=== PATIENT | male | born 1985 | race Caucasian/White ===

== ENCOUNTER → 2019-04-11 | Outpatient (CLI) | payer BC ==
--- NOTE | 2019-04-11 13:35 | Diagnostic Imaging Report ---
INDICATION: Pneumonia and dyspnea. TIME OF EXAMINATION: 12:58 PM. COMPARISON: No prior studies are available for comparison. FINDINGS: The heart appears to be mildly enlarged. The lungs are clear. The pulmonary vascularity is normal. No infiltrate, effusion, or pneumothorax is seen. IMPRESSION: No acute cardiopulmonary process is detected. Dictated by: Dictated on workstation # [id number]
== END ==
LOC: RAD 12:40
PROVIDERS: ATTEND Nurse Practitioner Family
DX: J18.9 Pneumonia, unspecified organism (principal); R91.8 Other nonspecific abnormal finding of lung field
CPT/HCPCS: 71046

== ENCOUNTER 2019-05-27 20:31 | Outpatient (CLI) | payer BC | END 2019-05-28 06:15 | disposition home or self-care (01) | LOC: SLEEP 20:31 | PROVIDERS: ATTEND Nurse Practitioner Family | DX: G47.10 Hypersomnia, unspecified (principal); G47.36 Sleep related hypoventilation in conditions classified elsewhere | CPT/HCPCS: 95810 ==